=== PATIENT | female | born 1990 | race Caucasian/White ===

== ENCOUNTER 2016-04-03 23:42 | Emergency (ER) | payer SELFPAY ==
[~2016-04-03] VITALS: Ht 152.4 cm; Wt 55.0 kg
[~2016-04-03 23:42] MED LIST: CIPR0.3S RIGHT EAR
[2016-04-03 23:45] VITALS: BP 124/76; PULSE 96; RESP 16; TEMP 98; O2SAT 98
--- NOTE | 2016-04-04 00:54 | PD ---
HPI Chief Complaint: Musculoskeletal Complaint Time Seen by Provider: 00:44 Travel History International Travel<30 days: No Contact w/Intl Traveler<30days: No Traveled to known affect area: No History of Present Illness HPI This is a 25-year-old female who presents for evaluation of lower back pain. Symptoms started 3-4 days ago. She reports the pain in the right lower back that shoots down the right leg. Symptoms are worse when standing. 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 She denies any specific mechanism of injury. No bowel or bladder incontinence or saddle anesthesia. She does note dysuria over the past few days and is concerned that she may have a urinary tract infection. No nausea, vomiting, fevers, chills. She was previously using Tylenol for symptom relief. No other complaints. PFSH Past Medical History Bipolar Disorder: Yes Anxiety: Yes Depression: Yes Diminished Hearing: No Genitourinary: Yes (KIDNEY INFECTION) Medical other: Yes (PTSD) Immunizations Current: Yes ?: Not LMP: ABLATION : 5 Para: 2 Miscarriage: 3 Ovarian Cysts: Yes (ALSO HAD OPEN SURGRY TO REMOVE) Dilation and Curettage (D&C): Yes Tubal Ligation: Yes Social History Alcohol Use: No Tobacco Use: No Substance Use: No Allergies-Medications (Allergen,Severity, Reaction): Coded Allergies: No Known Allergies (Unverified , 04/04/16) Reported Meds & Prescriptions Reported Meds & Active Scripts Active No Active Prescriptions or Reported Medications Review of Systems Except as stated in HPI: all other systems reviewed are Neg Physical Exam Narrative GENERAL: Well-developed well-nourished female in no acute distress SKIN: Warm and dry. No rash, no bruising, no soft tissue swelling HEAD: Atraumatic. Normocephalic. EYES: Pupils equal and round. No scleral icterus. No injection or drainage. ENT: No nasal bleeding or discharge. Mucous membranes pink and moist. NECK: Trachea midline. No JVD. CARDIOVASCULAR: Regular rate and rhythm. No murmur appreciated. RESPIRATORY: No accessory muscle use. Clear to auscultation. Breath sounds equal bilaterally. GASTROINTESTINAL: Abdomen soft, non-tender, nondistended. MUSCULOSKELETAL: No obvious deformities. There is no lower extremity edema, negative straight leg raise, 5 out of 5 muscle strength in lower extremity muscle groups. There is no CVA tenderness. NEUROLOGICAL: Awake and alert. No obvious cranial nerve deficits. Motor grossly within normal limits. Normal speech. Data Data Last Documented VS Vital Signs Date Time Temp Pulse Resp B/P Pulse Ox O2 Delivery O2 Flow Rate FiO2 04/04/16 00:34 96 16 04/03/16 23:45 98.0 124/76 98 Orders Urinalysis - C+S If Indicated (04/04/16 00:44) Ed Urine Pregnancytest Poc (04/04/16 00:44) Ketorolac Inj (Toradol Inj) (04/04/16 01:00) Orphenadrine Inj (Norflex Inj) (04/04/16 01:00) Urine Culture (04/04/16 01:06) Sulfamet-Trimeth Ds 800-160 Mg (Bactrim (04/04/16 01:45) Labs Laboratory Tests Test 04/04/16 01:06 Urine Color LIGHT-YELLOW Urine Turbidity HAZY Urine pH 6.0 Urine Specific [place] 1.014 Urine Protein NEG mg/dL Urine Glucose (UA) NEG mg/dL Urine Ketones NEG mg/dL Urine Occult Blood NEG Urine Nitrite NEG Urine Bilirubin NEG Urine Urobilinogen LESS THAN 2.0 MG/DL Urine Leukocyte Esterase MOD Urine RBC 3 /hpf Urine WBC 39 /hpf Urine Squamous Epithelial 4 /hpf Cells Urine Bacteria OCC /hpf Urine Mucus FEW /lpf Microscopic Urinalysis Comment CULTURE INDICATED MDM Medical Decision Making Medical Screen Exam Complete: Yes Emergency Medical Condition: Yes Medical Record Reviewed: Yes Interpretation(s) Urine test negative urinalysis 39 wbc's, occasional bacteria, culture pending Differential Diagnosis Cystitis, pyelonephritis, radiculopathy, herniated nucleus pulposus, piriformis syndrome Narrative Course 25-year-old female 4 days of dysuria, right lower back pain that radiates down the right leg. Physical examination is reassuring. She does not that she lifts heavy boxes but denies any specific mechanism of injury. Suspect lumbosacral radiculopathy. She is given Toradol and Norflex injections. Her urinalysis is consistent with cystitis. I don't suspect a kidney stone, hydronephrosis. Plan is to treat the patient with Bactrim. Diagnosis Primary Impression: Cystitis Additional Impression: Lumbosacral radiculopathy Additional Instructions: Medication as prescribed. Take [id number] Tylenol or ibuprofen for discomfort. Follow up closely with primary care physician. Avoid heavy lifting , strenuous activity. Return for any emergent medical conditions. Med/Other Pt SpecificInfo: Prescription(s) given Scripts Sulfamethoxazole-Trimethoprim (Bactrim DS)800-160 Mg Tab1 Tab PO BID #[id number] TAB Ref 0 Prov:Kathleen Peng MD 04/04/16 Disposition: 01 DISCHARGE HOME Condition: Stable Rey Shah Apr 04, 2016 00:54
[2016-04-04] MEDS ORDERED: ORPHENADRINE INJ 60 MG/2 ML AMP IM ONE (01:00)
[2016-04-04] MEDS ORDERED: KETOROLAC TROMETHAMINE 60 MG/2 ML (IM) VIAL IM ONE (01:00)
[2016-04-04 01:23] LABS: BACTERIA, URINE OCC /hpf; BLOOD, URINE NEG (NEG); COMMENT (UR) CULTURE INDICATED; CULTURE IF INDICATED CULTURE INDICATED; GLUCOSE,URINE NEG (NEG); KETONE, URINE NEG (NEG); MUCUS URINE FEW /lpf (OCC); NITRITE,URINE NEG (NEG); SQUAMOUS EPITHELIAL CELL URINE 4 /hpf (0-5); URINE COLOR LIGHT-YELLOW (YELLW/STRAW)
[2016-04-04] MEDS ORDERED: BACT800T5 PO (01:40)
[2016-04-04] MEDS ORDERED: SULFAMETHOXAZOLE-TRIMETHOPRIM DS 800-160 MG TAB PO ONE (01:45)
== END 2016-04-04 02:06 | disposition home or self-care (01) ==
LOC: NEPB 23:42
DX: N30.90 Cystitis, unspecified without hematuria (principal); M54.16 Radiculopathy, lumbar region; B96.20 Unspecified Escherichia coli [E. coli] as the cause of diseases classified elsewhere; Z86.59 Personal history of other mental and behavioral disorders; Z87.448 Personal history of other diseases of urinary system
CPT/HCPCS: 81001; 84703; 87077; 87086; 87186; 96372; 99283; J1885; J2360